=== PATIENT | male | born 1980 | race Caucasian/White ===

== ENCOUNTER 2019-09-08 15:30 | Emergency (ER) | payer BC ==
[~2019-09-08] VITALS: Ht 182.9 cm; Wt 147.0 kg
[2019-09-08 15:59] VITALS: BP_SYST 134
[2019-09-08 16:22] LABS: BASOPHILS % (AUTO) 0.4 % (0.0-2.0); EOSINOPHILS # (AUTO) 0.1 K/uL (0.0-0.4); EOSINOPHILS % (AUTO) 1.7 % (0.0-4.0); HEMATOCRIT 46.1 % (36-54); HEMOGLOBIN 15.8 g/dL (14.0-18.0); LYMPHOCYTES # (AUTO) 1.4 K/uL (1.0-5.5); LYMPHOCYTES % (AUTO) 30.1 % (20.5-51.5); MEAN CORPUSCULAR HEMOGLOBIN 31 pg (27-31); MEAN CORPUSCULAR HGB CONC 34 % (32-36); MEAN CORPUSCULAR VOLUME 91 fL (79.0-98.0); MONOCYTES # (AUTO) 0.7 K/uL (0.0-1.0); MONOCYTES % (AUTO) 14.7 % (1.7-9.3); NEUTROPHILS # (AUTO) 2.5 K/uL (1.8-7.7); NEUTROPHILS % (AUTO) 53.1 % (40.0-70.0); PLATELET COUNT (AUTO) 244 K/uL (130-430); RED BLOOD CELL COUNT(AUTO) 5.04 MIL/uL (4.2-6.2); RED CELL DISTRIBUTION WIDTH 13.4 % (9.0-15.0); WHITE BLOOD COUNT (AUTO) 4.7 K/uL (4.8-10.8)
[2019-09-08 16:46] LABS: CALCIUM 8.3 mg/dL (8.4-11.0); CREATININE 0.77 mg/dL (0.55-1.30); POTASSIUM 3.8 mmol/L (3.5-5.1)
[2019-09-08 16:50] LABS: ALBUMIN 3.5 g/dL (3.4-4.8); TOTAL BILIRUBIN 0.3 mg/dL (0.0-1.0)
--- NOTE | 2019-09-08 18:11 | NUR ---
Patient to ER bed 03 to gown for evaluation. Side rails up.
--- NOTE | 2019-09-08 18:20 | NUR ---
PT ARRIVES FROM HOME W/ ABD PAIN 05/25. PT DENIES VOMITING. PT STATES THAT HE IS RECOVERING FROM THE FLU.
--- NOTE | 2019-09-08 18:23 | NUR ---
EDSON LAFLEUR at bedside examining patient.
--- NOTE | 2019-09-08 18:42 | NUR ---
MEDICATED THE PT W/ NORCO AND ZOFRAN ORDERED. WILL REASSESS.
[2019-09-08] MEDS ORDERED: HYDROcodone/ACETAMIN 7.5-325 MG TAB PO ONE (18:45)
[2019-09-08] MEDS ORDERED: ONDANSETRON 4 MG ODT TAB PO ONE (18:45)
--- NOTE | 2019-09-08 19:12 | NUR ---
CARE ENDORSED TO SELINA AGUILERA.
--- NOTE | 2019-09-08 19:32 | NUR ---
Portable US study at bedside, Pt in stable condition
--- NOTE | 2019-09-08 20:30 | NUR ---
VSS no s/s of acute distress Resting on gurney rails up
[2019-09-08 21:30] VITALS: BP_SYST 134
--- NOTE | 2019-09-08 21:30 | NUR ---
Patient given written and verbal discharge instructions and verbalizes understanding. ER MD discussed with patient the results and treatment provided. Patient in stable condition. ID arm band removed. Rx of [place], Bentyl and Zofran given. Patient educated on pain management and to follow up with PMD. Pain Scale 0/10 Opportunity for questions provided and answered. Medication side effect fact sheet provided.
== END 2019-09-08 21:30 | disposition home or self-care (01) ==
LOC: SED 15:30
DX: R10.13 Epigastric pain (principal); R11.0 Nausea
CPT/HCPCS: 36415; 76700; 80053; 83690; 85025; 99284; Q0162